=== PATIENT | female | born 1980 | race Caucasian/White ===

== ENCOUNTER 2020-01-17 07:00 | Day surgery (SDC) | payer OTHER | END 2020-01-17 13:00 | disposition home or self-care (01) | LOC: CIR.AMB 07:00 | DX: O02.1 Missed abortion (principal) ==

== ENCOUNTER 2022-10-25 10:17 | Emergency (ER) | payer OTHER ==
[~2022-10-25] VITALS: Ht 162.6 cm; Wt 75.3 kg
== END 2022-10-25 17:08 | disposition home or self-care (01) ==
LOC: ER 10:17
DX: S61.311A Laceration without foreign body of left index finger with damage to nail, initial encounter (principal); W26.0XXA Contact with knife, initial encounter; Y93.9 Activity, unspecified; Y92.090 Kitchen in other non-institutional residence as the place of occurrence of the external cause; Y99.9 Unspecified external cause status; Z20.822 Contact with and (suspected) exposure to COVID-19; Z91.040 Latex allergy status; Z88.6 Allergy status to analgesic agent